=== PATIENT | male | born 1945 | race Caucasian/White ===

== ENCOUNTER → 2017-06-04 | Outpatient (CLI) | payer OTHER, MEDICAID ==
[2014-12-02 10:45] VITALS: BP 160/68
[2017-06-04 08:48] LABS: BASOPHILS # (AUTO) 0.1 X10^3/uL (0.0-0.1); BASOPHILS % (AUTO) 0.6 % (0.2-1.0); EOSINOPHILS # (AUTO) 0.6 x10^3/uL (0.0-0.2); EOSINOPHILS % (AUTO) 4.7 % (0.9-2.9); HEMATOCRIT 47.9 % (42.0-54.0); HEMOGLOBIN 15.9 g/dL (13.5-18.0); LYMPHOCYTES # (AUTO) 1.6 X10^3/uL (1.3-2.9); LYMPHOCYTES % (AUTO) 13.8 % (21.0-51.0); MEAN CORPUSCULAR HEMOGLOBIN 26.5 pg (27.0-34.0); MEAN CORPUSCULAR HGB CONC 33.2 g/dL (33.0-35.0); MEAN CORPUSCULAR VOLUME 79.7 fL (80.0-100.0); MEAN PLATELET VOLUME 9.1 fL (7.4-11.0); MONOCYTES # (AUTO) 0.8 x10^3/uL (0.3-0.8); MONOCYTES % (AUTO) 6.8 % (0.0-13.0); NEUTROPHILS # (AUTO) 8.8 x10^3/uL (2.2-4.8); NEUTROPHILS % (AUTO) 74.1 % (42.0-75.0); PLATELET COUNT 154 X10^3/uL (150.0-450.0); RED BLOOD COUNT 6.01 X10^6/uL (4.7-6.0); RED CELL DISTRIBUTION WIDTH 15.5 % (11.6-16.5); WHITE BLOOD COUNT 11.9 X10^3/uL (3.6-10.0)
[2017-06-04 08:56] LABS: HEMOGLOBIN A1C 8.1 %
[2017-06-04 09:02] LABS: ALBUMIN 3.5 g/dL (3.4-5.0); BLOOD UREA NITROGEN 51 mg/dL (7-18); CALCIUM 8.7 mg/dL (8.5-10.1); CARBON DIOXIDE 23.7 mmol/L (21-32); CHLORIDE 105 mmol/L (98-107); CHOL/HDL RATIO 4.5 (0.0-5.0); CHOLESTEROL 176 mg/dL (0-200); COR NA(FOR HYPERGLY) 142 mmol/L (136-145); CREATININE 2.27 mg/dL (0.70-1.30); HDL CHOLESTEROL 39 mg/dL (40-60); PHOSPHORUS 3.5 mg/dL (2.6-4.7); SODIUM 140 mmol/L (136-145); TRIGLYCERIDES 95 mg/dL (0-150); URIC ACID 11.1 mg/dL (3.5-7.2); eGFR BLACK RACES 37 (>60); eGFR NON BLACK RACES 30 (>60)
== END ==
LOC: LAB 08:10
PROVIDERS: ATTEND Internal Medicine
DX: I12.9 Hypertensive chronic kidney disease with stage 1 through stage 4 chronic kidney disease, or unspecified chronic kidney disease (principal); E11.22 Type 2 diabetes mellitus with diabetic chronic kidney disease; E78.4 Other hyperlipidemia; Z51.81 Encounter for therapeutic drug level monitoring
CPT/HCPCS: 36415; 80061; 80069; 83036; 84550; 85025; 85610

== ENCOUNTER 2021-06-07 02:17 | Observation (INO) ==
--- NOTE | 2021-06-07 02:30 | DR.UPM ---
HPI Time Seen Time Seen by Provider: 06/07/21 02:29 HPI Comment HPI Comment: PATIENT IS 75YR OLD MALE HYPERTENSION AND CHF IN ER WITH URINARY RETENSION FOR 10HRS AND CONSTIPATION. TOOK LAXITVE AND NOW HAVING DIARRHEA AND ABDOMINAL CRAMPING. PATIENT IS WEAK AND FEEL TIRED. NO FEVER. HISTORY OF HYPERTE NSION AND BP MARKEDLY ELEVATED IN ER. DENIES HEADACHE OR BLURRED VISION. Complaint Chief Complaint Doctors Comments: URINARY RETENTION, CONSTIPATIN, DIARRHEA AFTER LAXITIVE AND WEAKNESS. COVID-19 Coronavirus risk:travel/contact w/high risk person: No Has patient experienced Coronavirus symptoms: No Reviewed Nurses Notes Reviewed: Yes Source History Provided: Patient and EMS Mode of Arrival Mode of Arrival: EMS Duration Duration: Constant Duration: Hours Min/Hrs: Hours Context Onset: Spontaneous History of: Prostatitis Severity Pain: Moderate Inability to Void: Complete Location Pain Location: Abdomen Modifying Factors Medications: None Associated Signs and Symptoms Associated Signs and Symptoms: Abdominal Pain Other History Other History: HYPERTENSION. PMH PMH Past Medical History: CHF, Hypertension and Kidney Stones Past Surgical History: Yes Surgical History: Ortho Surgery and Lithotripsy Social History Do you use any recreational Drugs:: No ROS Review of Systems Constitutional: See HPI, Weakness and Fatigue; negative Fever Eyes: No Symptoms Reported and See HPI; negative Blurred Vision and Diplopia ENTM: No Symptoms Reported and See HPI; negative Nose Discharge and Nose Congestion Respiratoy: See HPI and Short of Breath; negative Moist Cough and Wheezing Cardiovascular: See HPI, Chest Pain and Edema Gastrointestinal/Abdominal: See HPI, Abdominal Pain, Constipation, Diarrhea and Nausea Genitourinary: No Symptoms Reported, See HPI and Pain (BLADDER AND ABDOMINAL PAIN.); negative Dysuria Neurological: No Symptoms Reported, See HPI and Weakness; negative Headache and Dizziness Musculoskeletal: No Symptoms Reported, See HPI and Back Pain; negative Muscle Pain Integumentary: No Symptoms Reported and See HPI; negative Rash and Juandice Hematologic/Lymphatic: No Symptoms Reported and See HPI; negative Easy Bruising Endocrine: No Symptoms Reported and See HPI; negative Increased Thirst and Increased Urine Psychiatric: No Symptoms Reported and See HPI All Other Systems: Reviewed and Negative PE Vital Signs Vitals: Temperature 97.7 F Pulse Rate [Left Radial] 50 Pulse Rate 65 Respiratory Rate 16 Blood Pressure [Left Arm] 141/64 Blood Pressure 141/64 O2 Sat by Pulse Oximetry 98 General Limitations: No Limitations General Appearance: Alert and In No Apparent Distress Head Head Exam: Normal Inspection Eyes Eye exam: Normal Appearance; negative Scleral Icterus and Conjunctival Injection ENT ENT Exam: Normal Exam, Normal Oropharynx, Normal External Ear Exam and TM's N ormal Bilaterally Neck Neck Exam: Normal Inspection and Trachea Midline; negative Tenderness Chest Chest Inspection: Normal Inspection and Symmetric Chest Wall Rise; negative Tenderness Respiratory Respiratory Exam: Normal Lung Sounds Bilat and Respiratory Distress; negative Accessory Muscle Use and Chest Wall Tenderness Respiratory Exam: Bilateral: Rhonchi and Lower: Rhonchi Cardiovascular Cardiovascular Exam: Regular Rate, Normal Rhythm and Normal Heart Sounds; negative Systolic Murmur and Diastolic Murmur Abdominal Exam Abdominal Exam: Normal Bowel Sounds, Soft, Distention and Tenderness Abdominal Tenderness: RLQ, LLQ, Suprapubic and Moderate Rectal Rectal Exam: Deferred Genitourinary Exam: Male: Deferred Extremities Extremities Exam: Normal Inspection, Normal Capillary Refill and Edema Back Back Exam: Normal Inspection; negative (R) CVA Tenderness and (L) CVA Tenderness Neurologic Neurological Exam: Alert and Oriented X3; negative Motor Sensory Deficit Psychiatric Psychiatric Exam: Normal Affect Skin Skin Exam: Warm, Dry, Intact and Normal Color MDM Differential Diagnosis Differential Diagnosis: Constipation, Pyelonephritis, Urinary Retention and UTI Other Differential Diagnosis: DIARRHEA, HTN, ELECTROLYTE IMBALANCE, DEHYDRATION. COURSE Treatment Treatment: SEE ORDERS. HARRIS CATH PLACE IN ER AND OVER 1000CC URINE DRAINED. WHILE IN ER, CLONIDINE 0.2MG PO, ROCEPHIN 1GM IVPB AND EFFERV KCL 20MEQ PO WAS GIVEN TO PATIENT. PAIN IMPROVED. LABS, XRAY AND CT REPORT DISCUSSED WITH PATIENT. HE WILL BE ADMITTED TO HOSPITAL FOR FURTHER MANAGEMENT. Reevaluation 1st: Improved Education/Counseling Education/Counseling: Patient Educated On: Diagnosis Education Comments: DISCUSSED PATIENT WITH DR. CHAND. HE WILL ADMIT PATIENT. ROR Labs Reviewed Laboratory Results Reviewed?: Yes Result Diagrams: 06/09/21 04:19 06/09/21 08:26 Laboratory: 06/07/21 02:34 Urine, Ureter Urine Culture - Final Escherichia Coli WBC 9.2 X10^3/uL (3.6-10.0) 06/08/21 03:59 RBC 3.33 X10^6/uL (4.7-6.0) L 06/08/21 03:59 Hgb 8.8 g/dL (13.5-18.0) L 06/08/21 03:59 Hct 27.5 % (42.0-54.0) L 06/08/21 03:59 MCV 82.5 fL (80.0-100.0) 06/08/21 03:59 MCH 26.5 pg (27.0-34.0) L 06/08/21 03:59 MCHC 32.2 g/dL (33.0-35.0) L 06/08/21 03:59 RDW 16.3 % (11.6-16.5) 06/08/21 03:59 Plt Count 126 X10^3/uL (150.0-450.0) L 06/08/21 03:59 MPV 8.7 fL (7.4-11.0) 06/08/21 03:59 Neut % (Auto) 68.3 % (42.0-75.0) 06/08/21 03:59 Lymph % (Auto) 15.5 % (21.0-51.0) L 06/08/21 03:59 [place] % (Auto) 8.3 % (0.0-13.0) 06/08/21 03:59 Eos % (Auto) 7.1 % (0.9-2.9) H 06/08/21 03:59 Baso % (Auto) 0.8 % (0.2-1.0) 06/08/21 03:59 Neut # (Auto) 6.3 x10^3/uL (2.2-4.8) H 06/08/21 03:59 Lymph # (Auto) 1.4 X10^3/uL (1.3-2.9) 06/08/21 03:59 [place] # (Auto) 0.8 x10^3/uL (0.3-0.8) 06/08/21 03:59 Eos # (Auto) 0.7 x10^3/uL (0.0-0.2) H 06/08/21 03:59 Baso # (Auto) 0.1 X10^3/uL (0.0-0.1) 06/08/21 03:59 Absolute Nucleated RBC 0.1 /100WBC 06/08/21 03:59 Sodium 145 mmol/L (136-145) 06/08/21 03:59 Corrected Sodium 146 mmol/L (136-145) H 06/08/21 03:59 Potassium 2.5 mmol/L (3.5-5.1) L* 06/08/21 03:59 Chloride 111 mmol/L (98-107) H 06/08/21 03:59 Carbon Dioxide 21.8 mmol/L (21-32) 06/08/21 03:59 BUN 40 mg/dL (7-18) H 06/08/21 03:59 Creatinine 2.31 mg/dL (0.70-1.30) H 06/08/21 03:59 Est GFR (MDRD) Af Amer 36 (>60) L 06/08/21 03:59 Est GFR (MDRD) Non-Af 29 (>60) L 06/08/21 03:59 Glucose 123 mg/dL (65-99) H 06/08/21 03:59 POC Glucose (mg/dL) 168 mg/dL (65-99) H 06/07/21 20:03 Calcium 8.2 mg/dL (8.5-10.1) L 06/08/21 03:59 Corrected Calcium 8.8 mg/dL (8.5-10.1) 06/08/21 03:59 Magnesium 2.1 mg/dL (1.7-2.9) 06/08/21 03:59 Iron 35 ug/dL (50-175) L 06/07/21 14:44 Transferrin 206 mg/dL (202-364) 06/07/21 14:44 Ferritin 176 ng/mL (26-388) 06/07/21 14:44 Total Bilirubin 0.40 mg/dL (0.2-1.0) 06/08/21 03:59 AST 14 Units/L (15-37) L 06/08/21 03:59 ALT 13 Units/L (12-78) 06/08/21 03:59 Alkaline Phosphatase 103 Units/L (46-116) 06/08/21 03:59 Creatine Kinase 74 Units/L (39-308) 06/07/21 21:05 CK-MB (CK-2) 1.8 ng/mL (0-4.0) 06/07/21 21:05 CK/CKMB % Calc 2.4 % (<4) 06/07/21 21:05 Troponin I High Sens 44.3 ng/L (4.0-60.0) 06/07/21 21:05 Total Protein 6.2 g/dL (6.4-8.2) L 06/08/21 03:59 Albumin 3.3 g/dL (3.4-5.0) L 06/08/21 03:59 Globulin 2.9 g/dL (2.5-4.5) 06/08/21 03:59 Albumin/Globulin Ratio 1.1 Ratio (1.1-2.1) 06/08/21 03:59 Vitamin B12 436 pg/mL (193-986) 06/07/21 14:44 Folate 7.3 ng/mL (>8.6) L 06/07/21 14:44 Specimen Type Catherized urine 06/07/21 02:34 Urine Color Yellow (YELLOW) 06/07/21 02:34 Urine Appearance Hazy (CLEAR) 06/07/21 02:34 Urine pH 5.0 (5.0 - 8.0) 06/07/21 02:34 Ur Specific [place] 1.010 (1.000-1.030) 06/07/21 02:34 Urine Protein 3+ (NEGATIVE) 06/07/21 02:34 Urine Glucose (UA) Negative (NEGATIVE) 06/07/21 02:34 Urine Ketones Negative (NEGATIVE) 06/07/21 02:34 Urine Occult Blood 5+ (NEGATIVE) 06/07/21 02:34 Urine Nitrite Negative (NEGATIVE) 06/07/21 02:34 Urine Bilirubin Negative (NEGATIVE) 06/07/21 02:34 Urine Urobilinogen Normal (NORMAL) 06/07/21 02:34 Ur Leukocyte Esterase 3+ (NEGATIVE) 06/07/21 02:34 Urine RBC 10-20 /HPF (0-3) A 06/07/21 02:34 Urine WBC Tntc /HPF (0-5) A 06/07/21 02:34 Ur Squamous Epith Cells Few /HPF (NEGATIVE) 06/07/21 02:34 Urine Bacteria 2+ /HPF (NEGATIVE) 06/07/21 02:34 Ur Culture Indicated? Yes/culture set up 06/07/21 02:34 SARS-CoV-2 (PCR) Negative (NEGATIVE) 06/07/21 04:48 Influenza Type A (PCR) Negative (NEGATIVE) 06/07/21 04:48 Influenza Type B (PCR) Negative (NEGATIVE) 06/07/21 04:48 RSV (PCR) Negative (NEGATIVE) 06/07/21 04:48 XRAY XRAY Interpreted by: Radiologist (report noted and discussed with patient.) and Self Opioid Opioid Risk Tool Age (Omega box if 16-45): No Total: 0 Total Score Risk Category: Low Risk Copyright: [facility] predicting aberrant behaviors Diagnosis Discharge Problem: Urinary retention, Accelerated hypertension, Hypokalemia, Acute constipation, Acute diarrhea, Acute renal insufficiency UTI (urinary tract infection) Qualifiers: Urinary tract infection type: site unspecified Hematuria presence: with hematuria Qualified Code(s): N39.0 - Urinary tract infection, site not specified Pneumonia Qualifiers: Pneumonia type: due to unspecified organism Laterality: bilateral Lung location: lower lobe of lung Qualified Code(s): J18.9 - Pneumonia, unspecified organism Instructions Instructions: Fall Prevention in the Home, Adult, [id number] Hypokalemia Food Choices to Help Relieve Diarrhea, Adult Urinary Tract Infection, Adult, [id number] Acute Urinary Retention, Male Diarrhea, Adult, [id number] Hypertension Community-Acquired Pneumonia, Adult, [id number] Forms: Precautions for COVID19 [facility] Social Distancing
[2021-06-07 02:42] VITALS: BMI 39.7
[2021-06-07 02:43] LABS: BILIRUBIN,URINE NEGATIVE (NEGATIVE); BLOOD/HEMOGLOBIN,URINE 5+ (NEGATIVE); GLUCOSE, URINE NEGATIVE (NEGATIVE); KETONES,URINE NEGATIVE (NEGATIVE); LEUKOCYTE ESTERASE ,URINE 3+ (NEGATIVE); NITRITES,URINE NEGATIVE (NEGATIVE); PROTEIN,URINE 3+ (NEGATIVE); UROBILINOGEN,URINE NORMAL (NORMAL)
[2021-06-07 02:49] LABS: APPEARANCE,URINE HAZY (CLEAR); COLOR,URINE YELLOW (YELLOW)
[2021-06-07 02:50] LABS: BACTERIA,URINE 2+ /HPF (NEGATIVE); SQUAMOUS EPITHELIAL CELL,UR FEW /HPF (NEGATIVE)
[2021-06-07 03:10] LABS: BASOPHILS # (AUTO) 0.1 X10^3/uL (0.0-0.1); BASOPHILS % (AUTO) 0.9 % (0.2-1.0); EOSINOPHILS % (AUTO) 8.7 % (0.9-2.9); HEMATOCRIT 30.1 % (42.0-54.0); HEMOGLOBIN 9.5 g/dL (13.5-18.0); LYMPHOCYTES # (AUTO) 1.2 X10^3/uL (1.3-2.9); LYMPHOCYTES % (AUTO) 10.3 % (21.0-51.0); MEAN CORPUSCULAR HGB CONC 31.6 g/dL (33.0-35.0); MEAN CORPUSCULAR VOLUME 82.2 fL (80.0-100.0); MEAN PLATELET VOLUME 7.9 fL (7.4-11.0); MONOCYTES # (AUTO) 0.9 x10^3/uL (0.3-0.8); MONOCYTES % (AUTO) 7.7 % (0.0-13.0); NEUTROPHILS # (AUTO) 8.3 x10^3/uL (2.2-4.8); NEUTROPHILS % (AUTO) 72.4 % (42.0-75.0); RED BLOOD COUNT 3.66 X10^6/uL (4.7-6.0); WHITE BLOOD COUNT 11.5 X10^3/uL (3.6-10.0)
[2021-06-07 03:20] LABS: ALANINE AMINOTRANSFERASE 12 Units/L (12-78); ALBUMIN 3.8 g/dL (3.4-5.0); ALKALINE PHOSPHATASE 114 Units/L (46-116); ASPARTATE AMINO TRANSFERASE 16 Units/L (15-37); BLOOD UREA NITROGEN 44 mg/dL (7-18); CALCIUM 8.8 mg/dL (8.5-10.1); CHLORIDE 109 mmol/L (98-107); COR NA(FOR HYPERGLY) 147 mmol/L (136-145); CREATININE 2.27 mg/dL (0.70-1.30); SODIUM 146 mmol/L (136-145); TOTAL PROTEIN 7.1 g/dL (6.4-8.2); eGFR NON BLACK RACES 30 (>60)
[2021-06-07] MEDS ORDERED: CATAPRES TAB 0.2 MG PO ONE (03:42)
[2021-06-07] MEDS ORDERED: ROCEPHIN VIAL 1 GRAM IM ONE (03:48)
[2021-06-07] MEDS ORDERED: CATAPRES TAB 0.2 MG ONE (03:48)
[2021-06-07] MEDS ORDERED: K-DUR TAB 20 MEQ PO ONE (03:49)
[2021-06-07] MEDS ORDERED: KLOR-CON ONE (03:51)
[2021-06-07] MEDS ORDERED: ROCEPHIN VIAL 1 GRAM ONE (03:51)
[2021-06-07] MEDS: KLOR-CON PO ONE ×2 (04:01→04:03)
--- NOTE | 2021-06-07 04:08 | RAD ---
STUDY: ACUTE ABDOMEN SERIESCOMPARISON: NoneHISTORY: PT C/O BEING CONSTIPATED AND UNABLE TO URINATEFINDINGS:CHEST:There is airspace disease in the bilateral lower lung zones which appears slightly worse on the right compared to left.The heart size is normal.The mediastinum is unremarkable.There is no evidence of pleural effusion or gross pneumothorax.ABDOMEN:The bowel gas pattern is nonobstructive.There is no gross evidence of free air.There are no abnormal masses or calcification seen.The visualized bones demonstrate degenerative changes.IMPRESSION:There is airspace disease in the bilateral lower lung zones which appears slightly worse on the right compared to left. Electronically signed by: Sea Das (Jun 07, 2021 04:06:05)
[2021-06-07] MEDS ORDERED: NS 100 ML IV 100 ML ONE ×2 (08:38→21:38)
[2021-06-07] MEDS ORDERED: VIBRAMYCIN IV ONE ×2 (08:38→21:38)
[2021-06-07] MEDS ORDERED: NS 1,000 ML IV 1,000 ML ONE (08:38)
[2021-06-07] MEDS ORDERED: ROCEPHIN 1 GRAM IV PREMIX 1 G/50 ML IV.SOLN. IV SCH (09:00)
[2021-06-07] MEDS ORDERED: NS 1/2 1,000 ML IV 1,000 ML IV SCH (09:00)
[2021-06-07] MEDS: VIBRAMYCIN 100 MG in NS 100 ML IV + SPIKE MINIBAG* 100 ML IV SCH ×2 (09:06→21:54)
[2021-06-07] MEDS: NS 1,000 ML IV 1,000 ML IV SCH ×2 (09:06→21:35)
[2021-06-07 09:18] LABS: CKMB % 2.9 % (<4); CREATINE KINASE MB 2.9 ng/mL (0-4.0)
--- NOTE | 2021-06-07 11:01 | DR.H&P ---
H&P History & Physical for Day of: H&P Date: 06/07/21 Chief Complaint Chief Complaint: Left lower quadrant abdominal pain. 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 He reports taking a laxative earlier which later resulted in his left lower quadrant abdominal pain with resulting diarrhea. After this had taken place he reported having urinary retention and sought medical attention at the emergency department. A Eng catheter was placed in which they returned a large amount of urine. this morning The patient is feeling better. His diarrhea has slowed at this time and his left lower quadrant abdominal pain is improved. Work up in the emergency department revealed that he had a urinary tract infection, worsening lung changes per abdominal x-ray and dehydration. He will be admitted for IV hydration and treatment for is UTI with IV antibiotics. Past Medical History Past Medical History: COPD, Diabetes and Hypertension Past Surgical History Surgical History: Ortho Surgery and Lithotripsy Additional Surgical History: left knee arthroplasty Family History Family Medical History: Diabetes Mellitus and Hypertension Social History Does patient currently use any type of tobacco product: No Have you used tobacco products in the last 12 months: No Type of Tobacco Use: None Does any household member use tobacco: No Alcohol Use: None Drug Use: None Medications Home Medications: Sulfa (Sulfonamide Antibiotics) Allergy (Verified 06/07/21 02:43) Labs Result Diagrams: 06/07/21 03:02 06/07/21 03:02 Labs: Laboratory WBC 11.5 X10^3/uL (3.6-10.0) H 06/07/21 03:02 RBC 3.66 X10^6/uL (4.7-6.0) L 06/07/21 03:02 Hgb 9.5 g/dL (13.5-18.0) L 06/07/21 03:02 Hct 30.1 % (42.0-54.0) L 06/07/21 03:02 MCV 82.2 fL (80.0-100.0) 06/07/21 03:02 MCH 26.0 pg (27.0-34.0) L 06/07/21 03:02 MCHC 31.6 g/dL (33.0-35.0) L 06/07/21 03:02 RDW 16.0 % (11.6-16.5) 06/07/21 03:02 Plt Count 155 X10^3/uL (150.0-450.0) 06/07/21 03:02 MPV 7.9 fL (7.4-11.0) 06/07/21 03:02 Neut % (Auto) 72.4 % (42.0-75.0) 06/07/21 03:02 Lymph % (Auto) 10.3 % (21.0-51.0) L 06/07/21 03:02 [place] % (Auto) 7.7 % (0.0-13.0) 06/07/21 03:02 Eos % (Auto) 8.7 % (0.9-2.9) H 06/07/21 03:02 Baso % (Auto) 0.9 % (0.2-1.0) 06/07/21 03:02 Neut # (Auto) 8.3 x10^3/uL (2.2-4.8) H 06/07/21 03:02 Lymph # (Auto) 1.2 X10^3/uL (1.3-2.9) L 06/07/21 03:02 [place] # (Auto) 0.9 x10^3/uL (0.3-0.8) H 06/07/21 03:02 Eos # (Auto) 1.0 x10^3/uL (0.0-0.2) H 06/07/21 03:02 Baso # (Auto) 0.1 X10^3/uL (0.0-0.1) 06/07/21 03:02 Absolute Nucleated RBC 0.0 /100WBC 06/07/21 03:02 Sodium 146 mmol/L (136-145) H 06/07/21 03:02 Corrected Sodium 147 mmol/L (136-145) H 06/07/21 03:02 Potassium 3.0 mmol/L (3.5-5.1) L* 06/07/21 03:02 Chloride 109 mmol/L (98-107) H 06/07/21 03:02 Carbon Dioxide 22.0 mmol/L (21-32) 06/07/21 03:02 BUN 44 mg/dL (7-18) H 06/07/21 03:02 Creatinine 2.27 mg/dL (0.70-1.30) H 06/07/21 03:02 Est GFR (MDRD) Af Amer 36 (>60) L 06/07/21 03:02 Est GFR (MDRD) Non-Af 30 (>60) L 06/07/21 03:02 Glucose 121 mg/dL (65-99) H 06/07/21 03:02 Calcium 8.8 mg/dL (8.5-10.1) 06/07/21 03:02 Corrected Calcium TNP 06/07/21 03:02 Total Bilirubin 0.90 mg/dL (0.2-1.0) 06/07/21 03:02 AST 16 Units/L (15-37) 06/07/21 03:02 ALT 12 Units/L (12-78) 06/07/21 03:02 Alkaline Phosphatase 114 Units/L (46-116) 06/07/21 03:02 Creatine Kinase 99 Units/L (39-308) 06/07/21 08:40 CK-MB (CK-2) 2.9 ng/mL (0-4.0) 06/07/21 08:40 CK/CKMB % Calc 2.9 % (<4) 06/07/21 08:40 Troponin I High Sens 58.5 ng/L (4.0-60.0) 06/07/21 08:40 Total Protein 7.1 g/dL (6.4-8.2) 06/07/21 03:02 Albumin 3.8 g/dL (3.4-5.0) 06/07/21 03:02 Globulin 3.3 g/dL (2.5-4.5) 06/07/21 03:02 Albumin/Globulin Ratio 1.2 Ratio (1.1-2.1) 06/07/21 03:02 Specimen Type Catherized urine 06/07/21 02:34 Urine Color Yellow (YELLOW) 06/07/21 02:34 Urine Appearance Hazy (CLEAR) 06/07/21 02:34 Urine pH 5.0 (5.0 - 8.0) 06/07/21 02:34 Ur Specific [place] 1.010 (1.000-1.030) 06/07/21 02:34 Urine Protein 3+ (NEGATIVE) 06/07/21 02:34 Urine Glucose (UA) Negative (NEGATIVE) 06/07/21 02:34 Urine Ketones Negative (NEGATIVE) 06/07/21 02:34 Urine Occult Blood 5+ (NEGATIVE) 06/07/21 02:34 Urine Nitrite Negative (NEGATIVE) 06/07/21 02:34 Urine Bilirubin Negative (NEGATIVE) 06/07/21 02:34 Urine Urobilinogen Normal (NORMAL) 06/07/21 02:34 Ur Leukocyte Esterase 3+ (NEGATIVE) 06/07/21 02:34 Urine RBC 10-20 /HPF (0-3) A 06/07/21 02:34 Urine WBC Tntc /HPF (0-5) A 06/07/21 02:34 Ur Squamous Epith Cells Few /HPF (NEGATIVE) 06/07/21 02:34 Urine Bacteria 2+ /HPF (NEGATIVE) 06/07/21 02:34 Ur Culture Indicated? Yes/culture set up 06/07/21 02:34 SARS-CoV-2 (PCR) Negative (NEGATIVE) 06/07/21 04:48 Influenza Type A (PCR) Negative (NEGATIVE) 06/07/21 04:48 Influenza Type B (PCR) Negative (NEGATIVE) 06/07/21 04:48 RSV (PCR) Negative (NEGATIVE) 06/07/21 04:48 Review of Systems Constitutional: No Symptoms Reported Eyes: No Symptoms Reported ENT: No Symptoms Reported Respiratory: No Symptoms Reported Cardiovascular: No Symptoms Reported Gastrointestinal: Abdominal Pain and Constipation Genitourinary: Retention Musculoskeletal: Other (Knee pain ) Neurological: No Symptoms Reported Physical Exam Vital Signs: Temperature 98.0 F Pulse Rate [Left Radial] 64 Pulse Rate 52 Respiratory Rate 20 Blood Pressure [Left Arm] 141/92 Blood Pressure 160/72 O2 Sat by Pulse Oximetry 100 Oriented: Normal Eyes: Normal Ear: Normal Nose: Normal Throat: Normal Respiratory: Clear Throughout Cardiovascular: Normal : Normal and Other (Eng catheter is in place ) Auscultation: Bowel Sounds: Normal Palpation: Normal Tenderness: LLQ Skin: Normal Musculoskeletal: Normal Psychiatric: Normal Mood Description: Calm Affect: Normal Speech Pattern: Clear and Appropriate Assessment/Plan (1) UTI (urinary tract infection): Status: Acute Plan: Intravenous Rocephin and Vibramycin. (2) Left lower quadrant abdominal pain: Narrative Support Text: Patient reports left lower quadrant pain after taking three tabs of laxative medication. Status: Acute Plan: monitor for resolution of pain, constipation and diarrhea. (3) Hypokalemia: Status: Acute Plan: Patient was given 20 milliequivalents of potassium chloride (4) Acute constipation: Status: Acute (5) Acute diarrhea: Status: Acute (6) Knee pain, left: Qualifiers: Chronicity: chronic Qualified Code(s): M25.562 - Pain in left knee; G89.29 - Other chronic pain Status: Acute Plan: pain control (7) Hypertension associated with chronic kidney disease due to type 2 diabetes mellitus: Status: Acute Plan: intravenous hydration with one half normal saline, recheck comprehensive metabolic panel in morning. (8) Acute dehydration: Status: Acute Plan: 1/2 normal saline intravenous fluid at 125 ml per hour (9) Abnormal abdominal x-ray: Narrative Support Text: The patients abdominal x-rays shows worsening lung changes in the base of the lungs Status: Acute Plan: Check chest x-ray to rule out pneumonia. Review H&P Reviewed: Yes Patient was examined?: Yes
[2021-06-07] MEDS: LOVENOX INJ 30 MG SYR SC SCH (13:03)
[2021-06-07] MEDS: DUONEB 0.5 MG/3 MG (3 mL) NEB SCH ×3 (13:55→20:20)
[2021-06-07 15:22] LABS: CKMB % 2.7 % (<4); CREATINE KINASE MB 2.6 ng/mL (0-4.0)
[2021-06-07] MEDS: PERCOCET TAB 5/325 MG PO PRN (17:17)
[2021-06-07] MEDS: PULMICORT NEB TX 0.5 MG NEB SCH (20:20)
[2021-06-07] MEDS: SNACK - Diabetic Appropriate PO SCH (20:36)
[2021-06-07] MEDS: AMARYL TAB 4 MG PO SCH (20:37)
[2021-06-07] MEDS: ROCEPHIN 1 GRAM IV PREMIX 1 G/50 ML IV.SOLN. IV SCH (20:37)
[2021-06-07] MEDS: APRESOLINE TAB 25 MG PO SCH (20:37)
[2021-06-07] MEDS: CRESTOR TAB 10 MG PO SCH (20:37)
[2021-06-07] MEDS: FLOMAX PO SCH (20:37)
[2021-06-07] MEDS ORDERED: PATIENT'S HOME MEDICATION (Ipratropium-Albuterol [Combivent Respimat] 20-100 mcg/actuation IN SCH (21:00)
[2021-06-07 21:35] LABS: CKMB % 2.4 % (<4); CREATINE KINASE MB 1.8 ng/mL (0-4.0)
[2021-06-07] MEDS: FLONASE NASAL SPRAY ENOSTRIL SCH (22:57)
[2021-06-08 04:41] LABS: BASOPHILS # (AUTO) 0.1 X10^3/uL (0.0-0.1); BASOPHILS % (AUTO) 0.8 % (0.2-1.0); EOSINOPHILS # (AUTO) 0.7 x10^3/uL (0.0-0.2); EOSINOPHILS % (AUTO) 7.1 % (0.9-2.9); HEMATOCRIT 27.5 % (42.0-54.0); HEMOGLOBIN 8.8 g/dL (13.5-18.0); LYMPHOCYTES # (AUTO) 1.4 X10^3/uL (1.3-2.9); LYMPHOCYTES % (AUTO) 15.5 % (21.0-51.0); MEAN CORPUSCULAR HEMOGLOBIN 26.5 pg (27.0-34.0); MEAN CORPUSCULAR HGB CONC 32.2 g/dL (33.0-35.0); MEAN CORPUSCULAR VOLUME 82.5 fL (80.0-100.0); MEAN PLATELET VOLUME 8.7 fL (7.4-11.0); MONOCYTES # (AUTO) 0.8 x10^3/uL (0.3-0.8); MONOCYTES % (AUTO) 8.3 % (0.0-13.0); NEUTROPHILS # (AUTO) 6.3 x10^3/uL (2.2-4.8); NEUTROPHILS % (AUTO) 68.3 % (42.0-75.0); RED BLOOD COUNT 3.33 X10^6/uL (4.7-6.0); RED CELL DISTRIBUTION WIDTH 16.3 % (11.6-16.5); WHITE BLOOD COUNT 9.2 X10^3/uL (3.6-10.0)
[2021-06-08 04:49] LABS: ALBUMIN 3.3 g/dL (3.4-5.0); CALCIUM 8.2 mg/dL (8.5-10.1); CARBON DIOXIDE 21.8 mmol/L (21-32); COR CA(FOR HYPOALB) 8.8 mg/dL (8.5-10.1); CREATININE 2.31 mg/dL (0.70-1.30); MAGNESIUM 2.1 mg/dL (1.7-2.9); TOTAL PROTEIN 6.2 g/dL (6.4-8.2)
--- NOTE | 2021-06-08 07:21 | RAD ---
HISTORYSOBSTUDYCHEST, 1 VIEWCOMPARISONNoneTECHNIQUEAP view of the chestFINDINGSCardiac silhouette is mildly enlarged. Mediastinal contours appear normal. There are mild scattered hazy and interstitial pulmonary opacities. No definite pleural effusion or pneumothorax.IMPRESSIONMild cardiomegaly. Mild hazy and interstitial pulmonary opacities may represent pulmonary edema or pneumonia in the acute setting.Electronically signed by: Gera Pascual (Jun 08, 2021 07:19:52)
[2021-06-08] MEDS ORDERED: MICRO K EXTEN CAP 10 MEQ PO PRN (07:54)
[2021-06-08] MEDS ORDERED: K-DUR TAB 20 MEQ PO PRN (07:54)
[2021-06-08] MEDS ORDERED: MAGNESIUM SULFATE 1 GRAM/100 mL PREMIX 1 G/100 ML BAG IV PRN (07:54)
[2021-06-08] MEDS ORDERED: K-RIDER 10 MEQ/NS 100 ML 10 MEQ/100 ML BAG IV PRN (07:54)
[2021-06-08] MEDS ORDERED: POTASSIUM CHL 60 MEQ/NS 0.45% 500 ML IV PRN (07:54)
[2021-06-08] MEDS ORDERED: POTASSIUM CHL 40 MEQ/NS 0.45% 500 ML IV PRN (07:54)
[2021-06-08] MEDS ORDERED: KLOR-CON PO PRN (07:54)
[2021-06-08] MEDS: PULMICORT NEB TX 0.5 MG NEB SCH ×2 (08:00→20:17)
[2021-06-08] MEDS: DUONEB 0.5 MG/3 MG (3 mL) NEB SCH ×4 (08:00→20:17)
[2021-06-08] MEDS: AMARYL TAB 4 MG PO SCH ×2 (09:20→20:03)
[2021-06-08] MEDS: APRESOLINE TAB 25 MG PO SCH ×2 (09:20→20:03)
[2021-06-08] MEDS: FLONASE NASAL SPRAY ENOSTRIL SCH ×2 (09:20→20:03)
[2021-06-08] MEDS: ZYLOPRIM PO SCH (09:21)
[2021-06-08] MEDS: NORVASC TAB 10 MG PO SCH (09:22)
[2021-06-08] MEDS: POTASSIUM CHLORIDE LIQ 20 MEQ UDC PO PRN ×3 (09:22→18:10)
[2021-06-08] MEDS: LOVENOX INJ 30 MG SYR SC SCH (09:23)
[2021-06-08] MEDS: NS 1,000 ML IV 1,000 ML IV SCH (13:23)
[2021-06-08] MEDS: PERCOCET TAB 5/325 MG PO PRN (18:09)
[2021-06-08] MEDS: SNACK - Diabetic Appropriate PO SCH (19:24)
[2021-06-08] MEDS: CRESTOR TAB 10 MG PO SCH (20:03)
[2021-06-08] MEDS: ROCEPHIN 1 GRAM IV PREMIX 1 G/50 ML IV.SOLN. IV SCH (20:03)
[2021-06-08] MEDS: FLOMAX PO SCH (20:03)
[2021-06-08] MEDS ORDERED: VIBRAMYCIN IV ONE (21:36)
[2021-06-08] MEDS ORDERED: NS 100 ML IV 100 ML ONE (21:36)
[2021-06-08] MEDS: VIBRAMYCIN 100 MG in NS 100 ML IV 100 ML IV SCH (22:00)
[2021-06-09 05:21] LABS: BASOPHILS # (AUTO) 0.1 X10^3/uL (0.0-0.1); BASOPHILS % (AUTO) 0.6 % (0.2-1.0); EOSINOPHILS # (AUTO) 0.9 x10^3/uL (0.0-0.2); EOSINOPHILS % (AUTO) 7.7 % (0.9-2.9); HEMATOCRIT 27.1 % (42.0-54.0); HEMOGLOBIN 8.6 g/dL (13.5-18.0); LYMPHOCYTES # (AUTO) 1.3 X10^3/uL (1.3-2.9); LYMPHOCYTES % (AUTO) 10.9 % (21.0-51.0); MEAN CORPUSCULAR HEMOGLOBIN 26.5 pg (27.0-34.0); MEAN CORPUSCULAR HGB CONC 31.8 g/dL (33.0-35.0); MEAN CORPUSCULAR VOLUME 83.2 fL (80.0-100.0); MEAN PLATELET VOLUME 8.7 fL (7.4-11.0); MONOCYTES # (AUTO) 1.1 x10^3/uL (0.3-0.8); NEUTROPHILS # (AUTO) 8.4 x10^3/uL (2.2-4.8); NEUTROPHILS % (AUTO) 71.8 % (42.0-75.0); RED BLOOD COUNT 3.26 X10^6/uL (4.7-6.0); RED CELL DISTRIBUTION WIDTH 16.7 % (11.6-16.5); WHITE BLOOD COUNT 11.7 X10^3/uL (3.6-10.0)
[2021-06-09 05:31] LABS: ALANINE AMINOTRANSFERASE 14 Units/L (12-78); ALBUMIN 3.3 g/dL (3.4-5.0); ALKALINE PHOSPHATASE 105 Units/L (46-116); ASPARTATE AMINO TRANSFERASE 14 Units/L (15-37); BLOOD UREA NITROGEN 40 mg/dL (7-18); CARBON DIOXIDE 20.8 mmol/L (21-32); CHLORIDE 111 mmol/L (98-107); COR CA(FOR HYPOALB) 8.6 mg/dL (8.5-10.1); CREATININE 2.37 mg/dL (0.70-1.30); SODIUM 143 mmol/L (136-145); TOTAL PROTEIN 6.4 g/dL (6.4-8.2); eGFR NON BLACK RACES 29 (>60)
[2021-06-09] MEDS: POTASSIUM CHLORIDE LIQ 20 MEQ UDC PO PRN (05:52)
[2021-06-09] MEDS: PULMICORT NEB TX 0.5 MG NEB SCH (08:10)
[2021-06-09] MEDS: DUONEB 0.5 MG/3 MG (3 mL) NEB SCH ×2 (08:10→13:10)
[2021-06-09] MEDS: NORVASC TAB 10 MG PO SCH (08:18)
[2021-06-09] MEDS: LOVENOX INJ 30 MG SYR SC SCH (08:18)
[2021-06-09] MEDS: APRESOLINE TAB 25 MG PO SCH (08:18)
[2021-06-09] MEDS: AMARYL TAB 4 MG PO SCH (08:18)
[2021-06-09] MEDS: FLONASE NASAL SPRAY ENOSTRIL SCH (08:18)
[2021-06-09] MEDS: VIBRAMYCIN 100 MG in NS 100 ML IV 100 ML IV SCH (08:19)
[2021-06-09] MEDS: ZYLOPRIM PO SCH (08:19)
[2021-06-09] MEDS ORDERED: NovoLIN R (or HumuLIN R) SC PRN (08:26)
[2021-06-09] MEDS: PERCOCET TAB 5/325 MG PO PRN ×2 (08:27→13:12)
[2021-06-09] MEDS ORDERED: PROCRIT or EPOGEN VIAL 10,000 UNITS SC NR (09:00)
--- NOTE | 2021-06-09 10:13 | PCM.PROG ---
Progress Note Progress Note for Day of Date of Exam: 06/08/21 Subjective Subjective: The patient is feeling much better this morning he reports. He reports that his left lower quadrant abdominal pain has resolved since admission. The patient's potassium level this morning is 2.9. We will continue to give him potassium and plan on discharging him home once it has normalized. Past Medical Family Social History Past Med/Fam/Surg Hx: No changes since H&P Allergies: Allergies Sulfa (Sulfonamide Antibiotics) Allergy (Verified 06/07/21 02:43) Review of Systems ROS: No change since H&P Vital Signs and I&O's Vital Signs: Temperature 97.7 F Pulse Rate [Left Radial] 50 Pulse Rate 66 Respiratory Rate 19 Blood Pressure [Left Arm] 141/64 Blood Pressure 122/58 O2 Sat by Pulse Oximetry 99 Intake and Output: Intake & Output 06/06/21 06/07/21 06/08/21 06/09/21 11:59 11:59 11:59 11:59 Intake Total 240 / 240 1579 / 1579 1397 / 1397 Output Total 800 / 800 600 / 600 950 / 950 Balance -560 / -560 979 / 979 447 / 447 Physical Exam Oriented: Normal Eyes: Normal Ear: Normal Nose: Normal Throat: Normal Respiratory: Normal Cardiovascular: Normal : Normal and Other (Eng catheter is in place ) Auscultation: Bowel Sounds: Normal Tenderness: Normal Skin: Normal Musculoskeletal: Normal Psychiatric: Normal Mood Description: Calm Affect: Normal Speech Pattern: Clear and Appropriate Laboratory and Diagnostics Result Diagrams: 06/09/21 04:19 06/09/21 08:26 Labs: 06/07/21 02:34 Urine, Ureter Urine Culture - Preliminary Laboratory WBC 11.7 X10^3/uL (3.6-10.0) H 06/09/21 04:19 RBC 3.26 X10^6/uL (4.7-6.0) L 06/09/21 04:19 Hgb 8.6 g/dL (13.5-18.0) L 06/09/21 04:19 Hct 27.1 % (42.0-54.0) L 06/09/21 04:19 MCV 83.2 fL (80.0-100.0) 06/09/21 04:19 MCH 26.5 pg (27.0-34.0) L 06/09/21 04:19 MCHC 31.8 g/dL (33.0-35.0) L 06/09/21 04:19 RDW 16.7 % (11.6-16.5) H 06/09/21 04:19 Plt Count 127 X10^3/uL (150.0-450.0) L 06/09/21 04:19 MPV 8.7 fL (7.4-11.0) 06/09/21 04:19 Neut % (Auto) 71.8 % (42.0-75.0) 06/09/21 04:19 Lymph % (Auto) 10.9 % (21.0-51.0) L 06/09/21 04:19 [place] % (Auto) 9.0 % (0.0-13.0) 06/09/21 04:19 Eos % (Auto) 7.7 % (0.9-2.9) H 06/09/21 04:19 Baso % (Auto) 0.6 % (0.2-1.0) 06/09/21 04:19 Neut # (Auto) 8.4 x10^3/uL (2.2-4.8) H 06/09/21 04:19 Lymph # (Auto) 1.3 X10^3/uL (1.3-2.9) 06/09/21 04:19 [place] # (Auto) 1.1 x10^3/uL (0.3-0.8) H 06/09/21 04:19 Eos # (Auto) 0.9 x10^3/uL (0.0-0.2) H 06/09/21 04:19 Baso # (Auto) 0.1 X10^3/uL (0.0-0.1) 06/09/21 04:19 Absolute Nucleated RBC 0.0 /100WBC 06/09/21 04:19 Sodium 143 mmol/L (136-145) 06/09/21 04:19 Corrected Sodium TNP 06/09/21 04:19 Potassium 3.5 mmol/L (3.5-5.1) 06/09/21 08:26 Chloride 111 mmol/L (98-107) H 06/09/21 04:19 Carbon Dioxide 20.8 mmol/L (21-32) L 06/09/21 04:19 BUN 40 mg/dL (7-18) H 06/09/21 04:19 Creatinine 2.37 mg/dL (0.70-1.30) H 06/09/21 04:19 Est GFR (MDRD) Af Amer 35 (>60) L 06/09/21 04:19 Est GFR (MDRD) Non-Af 29 (>60) L 06/09/21 04:19 Glucose 108 mg/dL (65-99) H 06/09/21 04:19 POC Glucose (mg/dL) 92 mg/dL (65-99) 06/09/21 05:23 Calcium 8.0 mg/dL (8.5-10.1) L 06/09/21 04:19 Corrected Calcium 8.6 mg/dL (8.5-10.1) 06/09/21 04:19 Magnesium 2.1 mg/dL (1.7-2.9) 06/08/21 03:59 Iron 35 ug/dL (50-175) L 06/07/21 14:44 Transferrin 206 mg/dL (202-364) 06/07/21 14:44 Ferritin 176 ng/mL (26-388) 06/07/21 14:44 Total Bilirubin 0.40 mg/dL (0.2-1.0) 06/09/21 04:19 AST 14 Units/L (15-37) L 06/09/21 04:19 ALT 14 Units/L (12-78) 06/09/21 04:19 Alkaline Phosphatase 105 Units/L (46-116) 06/09/21 04:19 Creatine Kinase 74 Units/L (39-308) 06/07/21 21:05 CK-MB (CK-2) 1.8 ng/mL (0-4.0) 06/07/21 21:05 CK/CKMB % Calc 2.4 % (<4) 06/07/21 21:05 Troponin I High Sens 44.3 ng/L (4.0-60.0) 06/07/21 21:05 B-Natriuretic Peptide 123 pg/mL (0-79) H 06/09/21 04:19 Total Protein 6.4 g/dL (6.4-8.2) 06/09/21 04:19 Albumin 3.3 g/dL (3.4-5.0) L 06/09/21 04:19 Globulin 3.1 g/dL (2.5-4.5) 06/09/21 04:19 Albumin/Globulin Ratio 1.1 Ratio (1.1-2.1) 06/09/21 04:19 Vitamin B12 436 pg/mL (193-986) 06/07/21 14:44 Folate 7.3 ng/mL (>8.6) L 06/07/21 14:44 Specimen Type Catherized urine 06/07/21 02:34 Urine Color Yellow (YELLOW) 06/07/21 02:34 Urine Appearance Hazy (CLEAR) 06/07/21 02:34 Urine pH 5.0 (5.0 - 8.0) 06/07/21 02:34 Ur Specific [place] 1.010 (1.000-1.030) 06/07/21 02:34 Urine Protein 3+ (NEGATIVE) 06/07/21 02:34 Urine Glucose (UA) Negative (NEGATIVE) 06/07/21 02:34 Urine Ketones Negative (NEGATIVE) 06/07/21 02:34 Urine Occult Blood 5+ (NEGATIVE) 06/07/21 02:34 Urine Nitrite Negative (NEGATIVE) 06/07/21 02:34 Urine Bilirubin Negative (NEGATIVE) 06/07/21 02:34 Urine Urobilinogen Normal (NORMAL) 06/07/21 02:34 Ur Leukocyte Esterase 3+ (NEGATIVE) 06/07/21 02:34 Urine RBC 10-20 /HPF (0-3) A 06/07/21 02:34 Urine WBC Tntc /HPF (0-5) A 06/07/21 02:34 Ur Squamous Epith Cells Few /HPF (NEGATIVE) 06/07/21 02:34 Urine Bacteria 2+ /HPF (NEGATIVE) 06/07/21 02:34 Ur Culture Indicated? Yes/culture set up 06/07/21 02:34 SARS-CoV-2 (PCR) Negative (NEGATIVE) 06/07/21 04:48 Influenza Type A (PCR) Negative (NEGATIVE) 06/07/21 04:48 Influenza Type B (PCR) Negative (NEGATIVE) 06/07/21 04:48 RSV (PCR) Negative (NEGATIVE) 06/07/21 04:48 Plan (1) UTI (urinary tract infection): Status: Acute Plan: Intravenous Rocephin and Vibramycin. Follow up with urine cultures once their available. the preliminary culture and sensitivity are showing gram-negative rods. (2) Left lower quadrant abdominal pain: Status: Resolved Plan: monitor for resolution of pain, constipation and diarrhea. (3) Hypokalemia: Status: Acute Plan: Patient was given 20 milliequivalents of potassium chloride (4) Acute constipation: Status: Resolved (5) Acute diarrhea: Status: Resolved (6) Knee pain, left: Status: Acute Qualifiers: Chronicity: chronic Qualified Code(s): M25.562 - Pain in left knee; G89.29 - Other chronic pain Plan: pain control (7) Hypertension associated with chronic kidney disease due to type 2 diabetes mellitus: Status: Acute Plan: intravenous hydration with one half normal saline, recheck comprehensive metabolic panel in morning. (8) Acute dehydration: Status: Resolved Plan: 1/2 normal saline intravenous fluid at 125 ml per hour (9) Abnormal abdominal x-ray: Status: Acute Plan: Repeat chest x-ray this morning shows possible increase intravascular markings. (10) DM2 (diabetes mellitus, type 2): Status: Acute Plan: Discontinue Janumet because of decreased renal function . Cover with sliding insulin scale is needed.
--- NOTE | 2021-06-09 10:28 | PCM.PROG ---
Progress Note Progress Note for Day of Date of Exam: 06/09/21 Subjective Subjective: The patient is feeling much better this morning he reports. He reports that his left lower quadrant abdominal pain has resolved since admission. The patient's potassium level this morning is 2.9. We will continue to give him potassium and plan on discharging him home once it has normalized. The patient's potassium later on this morning revealed that had come up to 3.5. Glucose this morning was 108. Creatinine this morning is 2.37. The patient's white blood cell count has slightly increased to 11.7. Past Medical Family Social History Past Med/Fam/Surg Hx: No changes since H&P Allergies: Allergies Sulfa (Sulfonamide Antibiotics) Allergy (Verified 06/07/21 02:43) Review of Systems ROS: No change since H&P Vital Signs and I&O's Vital Signs: Temperature 97.7 F Pulse Rate [Left Radial] 50 Pulse Rate 66 Respiratory Rate 19 Blood Pressure [Left Arm] 141/64 Blood Pressure 122/58 O2 Sat by Pulse Oximetry 99 Intake and Output: Intake & Output 06/06/21 06/07/21 06/08/21 06/09/21 11:59 11:59 11:59 11:59 Intake Total 240 / 240 1579 / 1579 1397 / 1397 Output Total 800 / 800 600 / 600 950 / 950 Balance -560 / -560 979 / 979 447 / 447 Physical Exam Oriented: Normal Eyes: Normal Ear: Normal Nose: Normal Throat: Normal Respiratory: Normal Cardiovascular: Normal : Normal and Other (Eng catheter is in place ) Auscultation: Bowel Sounds: Normal Tenderness: Normal Skin: Normal Musculoskeletal: Normal Psychiatric: Normal Mood Description: Calm Affect: Normal Speech Pattern: Clear and Appropriate Laboratory and Diagnostics Result Diagrams: 06/09/21 04:19 06/09/21 08:26 Labs: 06/07/21 02:34 Urine, Ureter Urine Culture - Final Escherichia Coli Laboratory WBC 11.7 X10^3/uL (3.6-10.0) H 06/09/21 04:19 RBC 3.26 X10^6/uL (4.7-6.0) L 06/09/21 04:19 Hgb 8.6 g/dL (13.5-18.0) L 06/09/21 04:19 Hct 27.1 % (42.0-54.0) L 06/09/21 04:19 MCV 83.2 fL (80.0-100.0) 06/09/21 04:19 MCH 26.5 pg (27.0-34.0) L 06/09/21 04:19 MCHC 31.8 g/dL (33.0-35.0) L 06/09/21 04:19 RDW 16.7 % (11.6-16.5) H 06/09/21 04:19 Plt Count 127 X10^3/uL (150.0-450.0) L 06/09/21 04:19 MPV 8.7 fL (7.4-11.0) 06/09/21 04:19 Neut % (Auto) 71.8 % (42.0-75.0) 06/09/21 04:19 Lymph % (Auto) 10.9 % (21.0-51.0) L 06/09/21 04:19 [place] % (Auto) 9.0 % (0.0-13.0) 06/09/21 04:19 Eos % (Auto) 7.7 % (0.9-2.9) H 06/09/21 04:19 Baso % (Auto) 0.6 % (0.2-1.0) 06/09/21 04:19 Neut # (Auto) 8.4 x10^3/uL (2.2-4.8) H 06/09/21 04:19 Lymph # (Auto) 1.3 X10^3/uL (1.3-2.9) 06/09/21 04:19 [place] # (Auto) 1.1 x10^3/uL (0.3-0.8) H 06/09/21 04:19 Eos # (Auto) 0.9 x10^3/uL (0.0-0.2) H 06/09/21 04:19 Baso # (Auto) 0.1 X10^3/uL (0.0-0.1) 06/09/21 04:19 Absolute Nucleated RBC 0.0 /100WBC 06/09/21 04:19 Sodium 143 mmol/L (136-145) 06/09/21 04:19 Corrected Sodium TNP 06/09/21 04:19 Potassium 3.5 mmol/L (3.5-5.1) 06/09/21 08:26 Chloride 111 mmol/L (98-107) H 06/09/21 04:19 Carbon Dioxide 20.8 mmol/L (21-32) L 06/09/21 04:19 BUN 40 mg/dL (7-18) H 06/09/21 04:19 Creatinine 2.37 mg/dL (0.70-1.30) H 06/09/21 04:19 Est GFR (MDRD) Af Amer 35 (>60) L 06/09/21 04:19 Est GFR (MDRD) Non-Af 29 (>60) L 06/09/21 04:19 Glucose 108 mg/dL (65-99) H 06/09/21 04:19 POC Glucose (mg/dL) 92 mg/dL (65-99) 06/09/21 05:23 Calcium 8.0 mg/dL (8.5-10.1) L 06/09/21 04:19 Corrected Calcium 8.6 mg/dL (8.5-10.1) 06/09/21 04:19 Magnesium 2.1 mg/dL (1.7-2.9) 06/08/21 03:59 Iron 35 ug/dL (50-175) L 06/07/21 14:44 Transferrin 206 mg/dL (202-364) 06/07/21 14:44 Ferritin 176 ng/mL (26-388) 06/07/21 14:44 Total Bilirubin 0.40 mg/dL (0.2-1.0) 06/09/21 04:19 AST 14 Units/L (15-37) L 06/09/21 04:19 ALT 14 Units/L (12-78) 06/09/21 04:19 Alkaline Phosphatase 105 Units/L (46-116) 06/09/21 04:19 Creatine Kinase 74 Units/L (39-308) 06/07/21 21:05 CK-MB (CK-2) 1.8 ng/mL (0-4.0) 06/07/21 21:05 CK/CKMB % Calc 2.4 % (<4) 06/07/21 21:05 Troponin I High Sens 44.3 ng/L (4.0-60.0) 06/07/21 21:05 B-Natriuretic Peptide 123 pg/mL (0-79) H 06/09/21 04:19 Total Protein 6.4 g/dL (6.4-8.2) 06/09/21 04:19 Albumin 3.3 g/dL (3.4-5.0) L 06/09/21 04:19 Globulin 3.1 g/dL (2.5-4.5) 06/09/21 04:19 Albumin/Globulin Ratio 1.1 Ratio (1.1-2.1) 06/09/21 04:19 Vitamin B12 436 pg/mL (193-986) 06/07/21 14:44 Folate 7.3 ng/mL (>8.6) L 06/07/21 14:44 Specimen Type Catherized urine 06/07/21 02:34 Urine Color Yellow (YELLOW) 06/07/21 02:34 Urine Appearance Hazy (CLEAR) 06/07/21 02:34 Urine pH 5.0 (5.0 - 8.0) 06/07/21 02:34 Ur Specific [place] 1.010 (1.000-1.030) 06/07/21 02:34 Urine Protein 3+ (NEGATIVE) 06/07/21 02:34 Urine Glucose (UA) Negative (NEGATIVE) 06/07/21 02:34 Urine Ketones Negative (NEGATIVE) 06/07/21 02:34 Urine Occult Blood 5+ (NEGATIVE) 06/07/21 02:34 Urine Nitrite Negative (NEGATIVE) 06/07/21 02:34 Urine Bilirubin Negative (NEGATIVE) 06/07/21 02:34 Urine Urobilinogen Normal (NORMAL) 06/07/21 02:34 Ur Leukocyte Esterase 3+ (NEGATIVE) 06/07/21 02:34 Urine RBC 10-20 /HPF (0-3) A 06/07/21 02:34 Urine WBC Tntc /HPF (0-5) A 06/07/21 02:34 Ur Squamous Epith Cells Few /HPF (NEGATIVE) 06/07/21 02:34 Urine Bacteria 2+ /HPF (NEGATIVE) 06/07/21 02:34 Ur Culture Indicated? Yes/culture set up 06/07/21 02:34 SARS-CoV-2 (PCR) Negative (NEGATIVE) 06/07/21 04:48 Influenza Type A (PCR) Negative (NEGATIVE) 06/07/21 04:48 Influenza Type B (PCR) Negative (NEGATIVE) 06/07/21 04:48 RSV (PCR) Negative (NEGATIVE) 06/07/21 04:48 Radiology Reviewed: Yes EKG Reviewed: Yes Rhythm: Afib Plan (1) UTI (urinary tract infection): Status: Acute Plan: Intravenous Rocephin and Vibramycin. Follow up with urine cultures once their available. the preliminary culture and sensitivity are showing gram-negative rods. (2) Left lower quadrant abdominal pain: Status: Resolved Plan: monitor for resolution of pain, constipation and diarrhea. (3) Hypokalemia: Status: Resolved Plan: Potassium replacement protocol. (4) Acute constipation: Status: Resolved (5) Acute diarrhea: Status: Resolved (6) Knee pain, left: Status: Acute Qualifiers: Chronicity: chronic Qualified Code(s): M25.562 - Pain in left knee; G89.29 - Other chronic pain Plan: pain control (7) Hypertension associated with chronic kidney disease due to type 2 diabetes mellitus: Status: Acute Plan: intravenous hydration with one half normal saline, recheck comprehensive metabolic panel in morning. (8) Acute dehydration: Status: Resolved Plan: 1/2 normal saline intravenous fluid at 125 ml per hour (9) Abnormal abdominal x-ray: Status: Acute Plan: Repeat chest x-ray this morning shows possible increase intravascular markings. (10) DM2 (diabetes mellitus, type 2): Status: Acute Plan: Discontinue Janumet because of decreased renal function . Cover with sliding insulin scale is needed.
[2021-06-09] MEDS: NS 1,000 ML IV 1,000 ML IV SCH ×2 (14:12)
[2021-06-09 16:34] VITALS: BP 149/66
--- NOTE | 2021-06-28 15:38 | PCM.DCPLAN ---
DISCHARGE SUMMARY Admission Date Date of Admission: 06/07/21 Discharge Date Discharge Date: 06/09/21 Admission Diagnoses (1) UTI (urinary tract infection): Status: Acute (2) Left lower quadrant abdominal pain: Status: Resolved (3) Hypokalemia: Status: Acute (4) Acute constipation: Status: Acute (5) Acute diarrhea: Status: Acute (6) Knee pain, left: Status: Acute (7) Hypertension associated with chronic kidney disease due to type 2 diabetes mellitus: Status: Acute (8) Acute dehydration: Status: Resolved (9) Abnormal abdominal x-ray: Status: Acute (10) DM2 (diabetes mellitus, type 2): Status: Acute Discharge Diagnoses Discharge Diagnosis: 1. Urinary tract infection secondary to Escherichia coli. 2. Hypokalemia now resolved. 3. Acute dehydration now resolved. 4. Left lower quadrant pain resolved. 5. Anemia of chronic disease. 6. Diabetes mellitus type 2 stable. 7. Chronic kidney disease. 8. Chronic left knee pain. 9. Acute constipation resolved 10. Hypertension stable. 11. Acute diarrhea now resolved. 12. Thrombocytopenia. 13. Urinary retention resolved. Discharge Medications Discharge Medications: Home Medication List Combivent Respimat 1 puff INHALATION BID 06/07/21 [History] Eliquis 5 mg PO BID 06/07/21 [History] allopurinol 100 mg PO DAILY 06/07/21 [History] amlodipine 10 mg PO DAILY 06/07/21 [History] cetirizine 10 mg PO DAILY 06/07/21 [History] chlorthalidone 25 mg PO DAILY 06/07/21 [History] doxycycline hyclate 100 mg PO BID 06/07/21 [History] fluticasone propionate 2 inh INHALATION BID 06/07/21 [History] furosemide 40 mg PO QAM 06/07/21 [History] glimepiride 4 mg PO BID 06/07/21 [History] hydralazine 25 mg PO BID 06/07/21 [History] oxycodone-acetaminophen 1 tab PO Q4-6H PRN 06/07/21 [History] potassium chloride 20 meq PO DAILY 06/07/21 [History] rosuvastatin 10 mg PO HS 06/07/21 [History] tamsulosin 0.4 mg PO QHS 06/07/21 [History] temazepam 30 mg PO QHS PRN 06/07/21 [History] tramadol 50 mg PO Q4-6H PRN 06/07/21 [History] pioglitazone [Actos] 15 mg PO DAILY #30 tab 06/08/21 [Rx] Prescriptions: pioglitazone [Actos] MARIELENA CHAND Hospital Course Vital Signs: Temperature 97.7 F Pulse Rate [Left Radial] 50 Pulse Rate 64 Respiratory Rate 15 Blood Pressure [Left Arm] 141/64 Blood Pressure 149/66 O2 Sat by Pulse Oximetry 100 Latest Lab Results: Laboratory Last Values WBC 11.7 X10^3/uL (3.6-10.0) H 06/09/21 04:19 RBC 3.26 X10^6/uL (4.7-6.0) L 06/09/21 04:19 Hgb 8.6 g/dL (13.5-18.0) L 06/09/21 04:19 Hct 27.1 % (42.0-54.0) L 06/09/21 04:19 MCV 83.2 fL (80.0-100.0) 06/09/21 04:19 MCH 26.5 pg (27.0-34.0) L 06/09/21 04:19 MCHC 31.8 g/dL (33.0-35.0) L 06/09/21 04:19 RDW 16.7 % (11.6-16.5) H 06/09/21 04:19 Plt Count 127 X10^3/uL (150.0-450.0) L 06/09/21 04:19 MPV 8.7 fL (7.4-11.0) 06/09/21 04:19 Neut % (Auto) 71.8 % (42.0-75.0) 06/09/21 04:19 Lymph % (Auto) 10.9 % (21.0-51.0) L 06/09/21 04:19 [place] % (Auto) 9.0 % (0.0-13.0) 06/09/21 04:19 Eos % (Auto) 7.7 % (0.9-2.9) H 06/09/21 04:19 Baso % (Auto) 0.6 % (0.2-1.0) 06/09/21 04:19 Neut # (Auto) 8.4 x10^3/uL (2.2-4.8) H 06/09/21 04:19 Lymph # (Auto) 1.3 X10^3/uL (1.3-2.9) 06/09/21 04:19 [place] # (Auto) 1.1 x10^3/uL (0.3-0.8) H 06/09/21 04:19 Eos # (Auto) 0.9 x10^3/uL (0.0-0.2) H 06/09/21 04:19 Baso # (Auto) 0.1 X10^3/uL (0.0-0.1) 06/09/21 04:19 Absolute Nucleated RBC 0.0 /100WBC 06/09/21 04:19 Sodium 143 mmol/L (136-145) 06/09/21 04:19 Corrected Sodium TNP 06/09/21 04:19 Potassium 3.5 mmol/L (3.5-5.1) 06/09/21 08:26 Chloride 111 mmol/L (98-107) H 06/09/21 04:19 Carbon Dioxide 20.8 mmol/L (21-32) L 06/09/21 04:19 BUN 40 mg/dL (7-18) H 06/09/21 04:19 Creatinine 2.37 mg/dL (0.70-1.30) H 06/09/21 04:19 Est GFR (MDRD) Af Amer 35 (>60) L 06/09/21 04:19 Est GFR (MDRD) Non-Af 29 (>60) L 06/09/21 04:19 Glucose 108 mg/dL (65-99) H 06/09/21 04:19 POC Glucose (mg/dL) 128 mg/dL (65-99) H 06/09/21 16:01 Calcium 8.0 mg/dL (8.5-10.1) L 06/09/21 04:19 Corrected Calcium 8.6 mg/dL (8.5-10.1) 06/09/21 04:19 Magnesium 2.1 mg/dL (1.7-2.9) 06/08/21 03:59 Iron 35 ug/dL (50-175) L 06/07/21 14:44 Transferrin 206 mg/dL (202-364) 06/07/21 14:44 Ferritin 176 ng/mL (26-388) 06/07/21 14:44 Total Bilirubin 0.40 mg/dL (0.2-1.0) 06/09/21 04:19 AST 14 Units/L (15-37) L 06/09/21 04:19 ALT 14 Units/L (12-78) 06/09/21 04:19 Alkaline Phosphatase 105 Units/L (46-116) 06/09/21 04:19 Creatine Kinase 74 Units/L (39-308) 06/07/21 21:05 CK-MB (CK-2) 1.8 ng/mL (0-4.0) 06/07/21 21:05 CK/CKMB % Calc 2.4 % (<4) 06/07/21 21:05 Troponin I High Sens 44.3 ng/L (4.0-60.0) 06/07/21 21:05 B-Natriuretic Peptide 123 pg/mL (0-79) H 06/09/21 04:19 Total Protein 6.4 g/dL (6.4-8.2) 06/09/21 04:19 Albumin 3.3 g/dL (3.4-5.0) L 06/09/21 04:19 Globulin 3.1 g/dL (2.5-4.5) 06/09/21 04:19 Albumin/Globulin Ratio 1.1 Ratio (1.1-2.1) 06/09/21 04:19 Vitamin B12 436 pg/mL (193-986) 06/07/21 14:44 Folate 7.3 ng/mL (>8.6) L 06/07/21 14:44 Specimen Type Catherized urine 06/07/21 02:34 Urine Color Yellow (YELLOW) 06/07/21 02:34 Urine Appearance Hazy (CLEAR) 06/07/21 02:34 Urine pH 5.0 (5.0 - 8.0) 06/07/21 02:34 Ur Specific [place] 1.010 (1.000-1.030) 06/07/21 02:34 Urine Protein 3+ (NEGATIVE) 06/07/21 02:34 Urine Glucose (UA) Negative (NEGATIVE) 06/07/21 02:34 Urine Ketones Negative (NEGATIVE) 03/01/22 02:34 Urine Occult Blood 5+ (NEGATIVE) 06/07/21 02:34 Urine Nitrite Negative (NEGATIVE) 06/07/21 02:34 Urine Bilirubin Negative (NEGATIVE) 06/07/21 02:34 Urine Urobilinogen Normal (NORMAL) 06/07/21 02:34 Ur Leukocyte Esterase 3+ (NEGATIVE) 06/07/21 02:34 Urine RBC 10-20 /HPF (0-3) A 06/07/21 02:34 Urine WBC Tntc /HPF (0-5) A 06/07/21 02:34 Ur Squamous Epith Cells Few /HPF (NEGATIVE) 06/07/21 02:34 Urine Bacteria 2+ /HPF (NEGATIVE) 06/07/21 02:34 Ur Culture Indicated? Yes/culture set up 06/07/21 02:34 SARS-CoV-2 (PCR) Negative (NEGATIVE) 06/07/21 04:48 Influenza Type A (PCR) Negative (NEGATIVE) 06/07/21 04:48 Influenza Type B (PCR) Negative (NEGATIVE) 06/07/21 04:48 RSV (PCR) Negative (NEGATIVE) 06/07/21 04:48 Hospital Course: This is a 75-year-old white male who was admitted from [facility] emergency department with acute lower quadrant abdominal pain. He reports being constipated and taking her laxatives which cause him to have the pain. He was also having urinary retention in which they placed a Eng catheter and then to get back enlargement of your appears urinalysis was done and revealed he had a urinary tract infection. The urine grew out E. coli which was sensitive to his antibiotics he was taking. I continue to patient during his stay for dehydration as well. By the second and third day he was feeling much better his abdomen has stopped hurting he was urinating on his own his hypokalemia had developed was corrected with potassium. In the afternoon of the third day his potassium had normalized and he was discharged home in stable condition. Instructions Instructions: Fall Prevention in the Home, Adult, [id number] Hypokalemia Food Choices to Help Relieve Diarrhea, Adult Urinary Tract Infection, Adult, [id number] Acute Urinary Retention, Male Diarrhea, Adult, [id number] Hypertension Community-Acquired Pneumonia, Adult, [id number] Forms: Precautions for COVID19 [facility] Patient Portal Social Distancing
== END 2021-06-09 17:38 | disposition home or self-care (01) ==
LOC: U 02:17 → ER 02:17 → U 08:24 → ICU 12:00
PROVIDERS: ADMIT Family Medicine; ATTEND Family Medicine
DX: N18.9 Chronic kidney disease, unspecified; R26.89 Other abnormalities of gait and mobility; R06.02 Shortness of breath; E11.65 Type 2 diabetes mellitus with hyperglycemia; I12.9 Hypertensive chronic kidney disease with stage 1 through stage 4 chronic kidney disease, or unspecified chronic kidney disease; R10.32 Left lower quadrant pain; E86.0 Dehydration; G89.29 Other chronic pain; Z20.822 Contact with and (suspected) exposure to COVID-19; R19.7 Diarrhea, unspecified; N39.0 Urinary tract infection, site not specified; R93.5 Abnormal findings on diagnostic imaging of other abdominal regions, including retroperitoneum; R79.89 Other specified abnormal findings of blood chemistry; M25.562 Pain in left knee; E87.6 Hypokalemia; B96.29 Other Escherichia coli [E. coli] as the cause of diseases classified elsewhere; R94.31 Abnormal electrocardiogram [ECG] [EKG]; K59.09 Other constipation